=== PATIENT | male | born 1965 | race Caucasian/White ===

== ENCOUNTER 2016-10-08 14:35 | Emergency (ER) | payer OTHER ==
[2016-10-08] MEDS ORDERED: HYDROmorphone HCL 1 MG/ML DISP.SYRIN IV ONE ×2 (15:06→15:28)
[2016-10-08] MEDS ORDERED: HYDROmorphone HCL 1 MG/ML DISP.SYRIN ONE (15:10)
[2016-10-08] MEDS ORDERED: ONDANSETRON HCL/PF 2 MG/ML VIAL IV ONE (15:23)
[2016-10-08] MEDS ORDERED: ONDANSETRON HCL/PF 2 MG/ML VIAL ONE (15:23)
--- NOTE | 2016-10-08 15:23 | ERNOTE ---
Abdominal HPI - Narrative Date of Service: 10/08/16 - General Chief Complaint: Abdominal Pain Time Seen by Provider: 10/08/16 14:59 Source: patient Exam Limitations: no limitations - Immun/Allergies/Home Medications Immunizatons: IMMUNIZATION HX Immunizations Up to Date Yes History of Influenza Vaccine No Hx Pneumococcal Vaccination No Allergies/Adverse Reactions: Allergies azithromycin Adverse Reaction (Severe, Verified 10/08/16 14:46) Other Home Medications: HOME MEDICATIONS metFORMIN HCL [Glucophage Xr] 1,000 mg PO BID #180 12/27/14 [Last Taken Unknown ] Duloxetine HCl [Cymbalta] 60 mg PO DAILY 10/08/16 [Last Taken Unknown] Pantoprazole Sodium [Protonix] 40 mg PO DAILY 10/08/16 [Last Taken Unknown] glyBURIDE [Micronase] 10 mg PO DAILY 10/08/16 [Last Taken Unknown] - History of Present Illness Narrative: patient states that his umbilical hernia started to hurt today around 1pm. he states he is not able to reduce it r/t pain. Date (Duration): 10/08/16 Timing: constant, getting worse Quality: moderate Activities at Onset: none Modifying Factors - (Improves): Present: other Modifying Factors - (Worsens): Present: movement Associated Symptoms: Present: denies symptoms Prior Abdominal Problems: Present: none Review of Systems - Review of Systems Constitutional: Present: no symptoms reported EYE: Present: no symptoms reported ENT: Present: no symptoms reported Respiratory: Present: no symptoms reported Cardiology: Present: no symptoms reported Gastrointestinal/Abdominal: Present: See HPI, abdominal pain Genitourinary: Present: no symptoms reported Musculoskeletal: Present: no symptoms reported Skin: Present: no symptoms reported Neurological: Present: no symptoms reported Endocrine: Present: no symptoms reported Hematologic/Lymphatic: Present: no symptoms reported Psych: Present: no symptoms reported - Patient's Past Medical History Patient History - Medical: Arthritis, Diabetes Type 2, Depression, GERD, Other - umbilical hernia Patient History - Cardiac/Respiratory: Hypertension Patient History - Cancer: No Hx of Cancer Patient History - Surgical Procedures: Cardiac stent Patient History - Other: None - Family History Mother Family History - Medical: Diabetes Type 2 Insulin Dependent, Depression Family History - Cardiac/Respiratory: Asthma, Hypertension, Hyperlipidemia, Myocardial Infarction Father Family History - Medical: Family History - Cardiac/Respiratory: Myocardial Infarction - Social History Living Situations: home Abuse History: No History of abuse Psych History: Hx of Depression Alcohol Use: none Drug Use: none - Immunizations Immunizations Up to Date: Yes Hx Pneumococcal Vaccination: No History of Influenza Vaccine: No Physical Exam - Physical Exam Narrative: patient has a golfball size umbilical hernia that is firm and painful. skin is not red or warm. General Appearance: Present: wd/wn, alert, mild distress Eye Exam: Normal inspection: bilateral Ears, Nose, Throat: Present: normal ENT inspection Neck: Present: normal inspection, nontender Respiratory: Present: no respiratory distress, normal breath sounds, lungs clear Cardiovascular/Chest: Present: regular rate, rhythm, no murmur, normal peripheral pulses Gastrointestinal/Abdominal: Present: normal bowel sounds, nondistended, tenderness, hernia Extremity Exam: Present: normal inspection, no edema Neurological Exam: Present: alert, oriented, normal mood/affect, no motor/ sensory deficits Skin Exam: Present: normal color, warm/dry Lymphatic Exam: Present: no adenopathy ED Progress - Vital Signs Patient's Vital Signs:: I have reviewed the patient's vital signs. Vital Signs: Vital Signs 10/08/16 14:42 Temperature 36.3 C L Pulse Rate 60 Respiratory 20 Rate Blood Pressure 131/79 O2 Sat by Pulse 97 Oximetry - Progress/Reassessment Chief Complaint: Abdominal Pain Progress:: Improved Plan - Plan Plan: patient hernia reduced. patient states he feels better. Patient will follow up with Dr Beebe for s surgical repair this week. Departure - Departure Clinical Impression: Hernia, umbilical Qualifiers: Obstruction and gangrene presence: without obstruction or gangrene Qualified Code(s): K42.9 - Umbilical hernia without obstruction or gangrene Disposition: Home Follow Up Needed Condition: Stable Instructions: Umbilical Hernia, Pediatric Additional Instructions: Continue any previous home medications. Please make a follow-up appointment with Dr. Nolan regarding the need for a surgical repair of the hernia. Return to emergency room if symptoms return. Referrals: Patel Mike MD [Primary Care Provider] - Ramo Beebe MD [Associate] -
[2016-10-08 16:33] VITALS: BP 126/80
== END 2016-10-08 16:28 | disposition home or self-care (01) ==
LOC: ER 14:35
DX: K42.9 Umbilical hernia without obstruction or gangrene (principal)

== ENCOUNTER 2016-10-16 12:21 | Day surgery (SDC) | payer OTHER ==
[~2016-10-16 12:21] MED LIST: RINGERS SOLUTION,LACTATED 1,000 ML IV PRN; ceFAZolin SODIUM 2 GM in DEXTROSE 5 % IN WATER 50 ML IV PRN
[2016-10-16] MEDS ORDERED: RINGERS SOLUTION,LACTATED 1,000 ML IV ONE (12:45)
[2016-10-16] MEDS ORDERED: BUPIVACAINE HCL/EPINEPHRINE 50 ML VIAL IJ ONE ×2 (14:50)
[2016-10-16] MEDS ORDERED: HYDROcodone/ACETAMINOPHEN 1 EACH TABLET PO PRN (15:40)
--- NOTE | 2016-10-16 16:58 | OR ---
Operative Report - Dictated Report Narrative: Date: 10/16/2016 PREOP: Umbilical hernia POSTOP: same PROC: Umbilical hernia repair with medium ventralex ST mesh. SURG: Ramo Beebe MD EBL: Min. ANESTH: Local/MAC COMPS: none apparent SPECIMENS: none DESCRIPTION: Pt placed in supine position and abdomen prepped and draped in sterile fashion. Field block performed around umbilicus. Supraumbilical incision carried out. Hernia sac dissected free of subq, dermis of umbilicus and fascial rim. Properitoneal pocket formed with sponge packing and finger dissection. Medium ventralex ST patch deployed in properitoneal pocket. Prosthesis secured with running whip stitch of 0-prolene taken 360 degrees around the rim. dermis of umbilicus tacked to fascia with vicryl. Incision closed with subcuticular stitch of 4-0 vicryl and sealed with dermabond. Pt tolerated procedure well without any apparent complications and was discharged from the OR in stable condition.
[2016-10-16 17:19] VITALS: BP 130/75
== END 2016-10-16 12:22 | disposition home or self-care (01) ==
LOC: AMB 12:21
PROVIDERS: ATTEND Specialist
PROC: 0WUF0JZ Supplement Abdominal Wall with Synthetic Substitute, Open Approach (ICD-10-PCS; principal; 2016-10-16 14:00)
DX: K42.9 Umbilical hernia without obstruction or gangrene (principal); E11.65 Type 2 diabetes mellitus with hyperglycemia; J45.909 Unspecified asthma, uncomplicated; I25.10 Atherosclerotic heart disease of native coronary artery without angina pectoris; I11.0 Hypertensive heart disease with heart failure; I50.9 Heart failure, unspecified; E78.5 Hyperlipidemia, unspecified; Z68.25 Body mass index [BMI] 25.0-25.9, adult

== ENCOUNTER 2016-11-30 10:31 | Day surgery (SDC) | payer OTHER ==
[~2016-11-30 10:31] MED LIST changes: +ACETAMINOPHEN 325 MG TABLET PO PRN; +ACETYLCHOLINE CHLORIDE 20 DROP KIT IO PRN; +BUPIVACAINE HCL/PF 30 ML VIAL IJ PRN; +CYCLOPENTOLATE HCL 20 DROP BTL LEFTEYE PRN; +DEXTROSE 5%-0.5 NORMAL SALINE 1,000 ML IV PRN; +EPINEPHrine 1 MG/ML AMPUL IO PRN; +HYALURONATE SODIUM 0.4 ML DISP.SYRIN IO PRN; +HYALURONATE SODIUM 0.85 ML DISP.SYRIN IO PRN; +LIDOCAINE HCL/PF 200 MG/5 ML AMPUL TP PRN; +LIDOCAINE HCL/PF 5 ML VIAL IO PRN; +NORMAL SALINE 3 ML BOX IV PRN; +PHENYLEPHRINE HCL 50 DROP BTL LEFTEYE PRN; -RINGERS SOLUTION,LACTATED 1,000 ML IV PRN; +TETRACAINE HCL 150 DROP BTL OP PRN; +TROPICAMIDE 150 DROP BTL LEFTEYE PRN; -ceFAZolin SODIUM 2 GM in DEXTROSE 5 % IN WATER 50 ML IV PRN
== END 2016-11-30 10:32 | disposition home or self-care (01) ==
LOC: AMB 10:31
PROVIDERS: ATTEND Ophthalmology
DX: Z53.9 Procedure and treatment not carried out, unspecified reason (principal)

== ENCOUNTER 2016-12-14 06:44 | Day surgery (SDC) | payer OTHER ==
[~2016-12-14 06:44] MED LIST changes: -PHENYLEPHRINE HCL 50 DROP BTL LEFTEYE PRN; -TROPICAMIDE 150 DROP BTL LEFTEYE PRN
[2016-12-14] MEDS: PHENYLEPHRINE HCL 50 DROP BTL LEFTEYE PRN ×3 (07:10→07:37)
[2016-12-14] MEDS: TROPICAMIDE 150 DROP BTL LEFTEYE PRN ×3 (07:10→07:37)
[2016-12-14] MEDS ORDERED: RINGER'S SOLUTION,LACTATED 1,000 ML IV ONE (07:42)
[2016-12-14 09:56] VITALS: BP 130/72
== END 2016-12-14 06:45 | disposition home or self-care (01) ==
LOC: AMB 06:44
PROVIDERS: ATTEND Ophthalmology
PROC: 08RK3JZ Replacement of Left Lens with Synthetic Substitute, Percutaneous Approach (ICD-10-PCS; principal; 2016-12-14 08:00)
DX: H26.9 Unspecified cataract (principal); I11.0 Hypertensive heart disease with heart failure; I50.9 Heart failure, unspecified; E11.65 Type 2 diabetes mellitus with hyperglycemia; I25.10 Atherosclerotic heart disease of native coronary artery without angina pectoris; E78.5 Hyperlipidemia, unspecified; K58.9 Irritable bowel syndrome, unspecified; Z68.26 Body mass index [BMI] 26.0-26.9, adult

== ENCOUNTER 2018-02-01 16:39 | Observation (INO) ==
[2018-02-01] MEDS: NITROGLYCERIN 0.4 MG/TAB BTL SL ONE ×2 (16:59→17:15)
[2018-02-01] MEDS ORDERED: ASPIRIN 81 MG TAB.CHEW PO ONE (16:59)
[2018-02-01 17:17] LABS: Hematocrit 44.6 % (42.0-52.0); Hemoglobin 15.4 gm/dL (13.5-18.0); Mean Cell Volume 87.8 fl (78-100); Mean Corpuscular Hemoglobin 30.3 pg (27-31); Mean Corpuscular Hgb Conc 34.5 g/dl (32-36); Mean Platelet Volume 9.8 fl (8-11.3); Neutrophil # 3.2 K/mm3 (1.3-6.0); Neutrophil % 50.9 % (42-75.0); Platelet Count 196 K/mm3 (150-450); Red Blood Count 5.08 M/mm3 (4.7-6.0); Red Cell Distribution Width 12.2 % (11.5-14.0); White Blood Count 6.4 K/mm3 (4.0-10.5)
--- NOTE | 2018-02-01 17:26 | ERNOTE ---
Chest Pain/Cardiac HPI Date of Service: 02/01/18 Chief Complaint: Chest Pain Time Seen by Provider: 02/01/18 16:58 Source: patient, family Exam Limitations: no limitations Immunizations: IMMUNIZATION HX Immunizations Up to Date Yes History of Influenza Vaccine No Hx Pneumococcal Vaccination No Allergies/Adverse Reactions: Allergies atorvastatin [From Lipitor] Adverse Reaction (Mild, Verified 02/01/18 16:55) MUSCLE ACHES azithromycin Adverse Reaction (Mild, Verified 02/01/18 16:55) UPSET STOMACH Home Medications: HOME MEDICATIONS Acetaminophen [Tylenol] 500 mg PO Q4H PRN 10/15/16 [Last Taken Unknown] Glimepiride [Amaryl] 4 mg PO DAILY@0700 10/15/16 [Last Taken Unknown] Pantoprazole Sodium [Protonix] 20 mg PO DAILY 10/15/16 [Last Taken Unknown] metFORMIN HCL [Glucophage] 1,000 mg PO BIDWM 10/15/16 [Last Taken Unknown] aspirin 81 mg tablet,delayed release 325 mg PO DAILY 12/13/17 [Last Taken Unknown] duloxetine 60 mg capsule,delayed release 60 mg PO DAILY 12/13/17 [Last Taken Unknown] empagliflozin 25 mg tablet 25 mg PO DAILY 12/13/17 [Last Taken Unknown] atorvastatin 40 mg tablet 40 mg PO DAILY 12/16/17 [Last Taken Unknown] Narrative: Patient presents to the ER after having a syncopal episode at home falling down onto the floor against a computer. Son heard him fall and ran out. States he was out for approx 5 seconds then was slow to respond. Then started complaining of chest pain. Describes as an aching in the mid to lower sternum. States he did not hit his chest on anything. Denies any other pain. Date (Duration): 02/01/18 Time (Timing): 16:00 Timing: constant Severity/Quality: moderate, dull, pressure Location: substernal Chest Pain Radiation: no radiation Activities at Onset: other - syncope Modifying Factors - Improves: Present: nothing Modifying Factors - Worsens: Present: nothing Nitro Today/Relief: 0.4 mg x 3, provided by ED Aspirin Treatment Today: 325 mg x 1, provided at home Associated Symptoms: Present: syncope, weakness. Absent: headache, dizziness, shortness of breath, nausea Prior Chest Pain/Cardiac Workup: Reports: prior chest pain, cardiac cath, other - 3 yrs ago Review of Systems - Review of Systems Constitutional: Present: no symptoms reported ENT: Present: no symptoms reported Respiratory: Present: no symptoms reported Cardiology: Present: See HPI, chest pain, syncope Gastrointestinal/Abdominal: Present: no symptoms reported Genitourinary: Present: no symptoms reported Musculoskeletal: Present: no symptoms reported Skin: Present: no symptoms reported Neurological: Present: no symptoms reported Endocrine: Present: no symptoms reported Hematologic/Lymphatic: Present: no symptoms reported Psych: Present: no symptoms reported Medical History (Last Reviewed 02/01/18 @ 16:56 by Claudy Long RN) Diabetes mellitus (Chronic) Onset Date: Unknown IBS (irritable bowel syndrome) (Chronic) Onset Date: Unknown Hypertension (Chronic) Onset Date: Unknown Hyperlipidemia (Chronic) Onset Date: Unknown CHF (congestive heart failure) (Chronic) Onset Date: Unknown Cataract (Chronic) Onset Date: ~09/30/16 CAD (coronary artery disease) (Chronic) Onset Date: Unknown Asthma (Chronic) Onset Date: Unknown Foot fracture Onset Date: ~04/2015 Surgical History: Surgical History (Last Reviewed 02/01/18 @ 16:56 by Claudy Long RN) H/O coronary angiogram Onset Date: ~01/04/15 H/O umbilical hernia repair Onset Date: ~10/16/16 History of placement of stent in LAD coronary artery Onset Date: ~01/04/15 Family History: Family History (Last Reviewed 02/01/18 @ 16:56 by Claudy Long RN) Brother Alive and well Father No problems noted. Mother Diabetes CVA (cerebral vascular accident) Coronary artery disease Sister Alive and well Social History: Preferred Language Spanish Do you have any gnosticist or Yes: caodaism cultural preference? Smoking Status Former smoker Abuse History No History of abuse Psych History Hx of Depression,Currently on Meds Alcohol Use rarely Drug Use none Physical Exam - Physical Exam General Appearance: Present: wd/wn, alert, mild distress Head Exam: Present: normal inspection, no evidence of injury Eye Exam: Normal inspection: bilateral, PERRL: bilateral, EOMI: bilateral Ears, Nose, Throat: Present: normal pharynx Neck: Present: normal inspection, nontender. Absent: carotid bruit Respiratory: Present: no respiratory distress, normal breath sounds, no accessory muscle use, lungs clear, other - Mild chest sternal tenderness. No redness or bruising Cardiovascular/Chest: Present: regular rate, rhythm, no murmur, normal peripheral pulses Peripheral Pulses: N=norm/S=strong/W=weak/B=bound/A=absent: Radial (R): Normal, Radial (L): Normal, Dorsalis-pedis (R): Normal, Dorsalis-pedis (L): Normal Gastrointestinal/Abdominal: Present: normal bowel sounds, nontender, nondistended, soft Back Exam: Present: normal range of motion, no CVA tenderness, no vertebral tenderness Extremity Exam: Present: normal inspection, normal range of motion, no edema Neurological Exam: Present: alert, oriented, normal mood/affect, no motor/ sensory deficits Skin Exam: Present: normal color, warm/dry ED Progress - Results and Orders Patient's Lab Results:: I have reviewed the patient's lab results. - Vital Signs Patient's Vital Signs:: I have reviewed the patient's vital signs. Vital Signs: Vital Signs 02/01/18 16:46 02/01/18 16:54 Temperature 36.6 C Pulse Rate 73 85 Respiratory Rate 11 L 11 L Blood Pressure 139/85 139/85 O2 Sat by Pulse Oximetry 97 96 - EKG EKG: NSR - X-Ray X-Ray #1 X-Ray: chest - No acute pulmonary findings Interpretation: Interp. by me - CT/Ultrasound CT/Ultrasound Narrative: CT head. No acute findings. - Progress/Reassessment Chief Complaint: Chest Pain Progress:: Pain free at discharge - Transfer of Care Additional Notes: Spoke with Dr. Tijerina who will accept patient observation for serial troponin and telemetry. Departure Clinical Impression: Syncope and collapse, Chest pain CAD (coronary artery disease) Qualifiers: Coronary Disease-Associated Artery/Lesion type: unspecified vessel or lesion type [place] vs. transplanted heart: [place] heart Associated angina: with angina and documented spasm Qualified Code(s): I25.111 - Atherosclerotic heart disease of [place] coronary artery with angina pectoris with documented spasm - Departure Disposition: Still a patient Condition: Stable Referrals: Patel Mike MD [Primary Care Provider] -
[2018-02-01 17:46] LABS: ALT 21 U/L (19-67); AST 10 U/L (0-48); Albumin * 3.9 gm/dl (3.4-5.0); Alkaline Phosphatase * 129 U/L (50-170); Anion Gap 11.9 mmol/L (6.8-13.8); BUN/Creatinine Ratio 14.4 (9.0-21.6); Bilirubin, Total 0.3 mg/dL (0.0-1.1); Blood Urea Nitrogen 15 mg/dL (6-23); Ca. Corrected For Albumin 8.6 mg/dL (8.4-10.2); Calcium * 8.8 mg/dL (7.9-10.9); Carbon Dioxide 26.7 mmol/L (24-32.6); Chloride 102 mmol/L (97-106); Glucose * 253 mg/dL (70-110); Magnesium 1.8 mg/dL (1.2-2.8); Potassium 3.6 mmol/L (3.4-4.6); Sodium 137 mmol/L (132-142)
[2018-02-01 17:52] LABS: Troponin I Less than 0.017 ng/mL (0.00-0.10)
[2018-02-01 18:28] LABS: Urine Bilirubin Negative (NEGATIVE); Urine Blood Negative /ul (NEGATIVE); Urine Ketone Negative (NEGATIVE); Urine Nitrite Negative (NEGATIVE); Urine Protein Negative (NEGATIVE); Urine Urobilinogen Normal (NORMAL)
[2018-02-01 18:38] LABS: Urine Appearance Clear (CLEAR); Urine Bacteria TRACE; Urine Color Yellow; Urine RBC None Seen /hpf (0-5); Urine WBC None Seen /hpf (0-5)
[2018-02-01] MEDS ORDERED: ROSUVASTATIN CALCIUM 10 MG TABLET PO ONE (21:00)
[2018-02-01] MEDS ORDERED: GLIMEPIRIDE 4 MG TABLET PO ONE (21:00)
[2018-02-01] MEDS ORDERED: DULoxetine HCL 30 MG CAPSULE.SA PO ONE (21:00)
[2018-02-01] MEDS ORDERED: ASPIRIN 81 MG TABLET.DR PO ONE (21:00)
[2018-02-01] MEDS ORDERED: EMPAGLIFLOZIN 25 MG TABLET PO ONE (21:00)
[2018-02-01] MEDS ORDERED: metFORMIN HCL 500 MG TABLET ONE (22:04)
[2018-02-01] MEDS ORDERED: ASPIRIN 81 MG TABLET.DR ONE (22:06)
[2018-02-01] MEDS ORDERED: PANTOPRAZOLE SODIUM 20 MG TABLET.DR ONE (22:06)
[2018-02-01] MEDS ORDERED: GLIMEPIRIDE 2 MG TABLET ONE (22:07)
--- NOTE | 2018-02-02 08:14 | HP ---
Chief Complaint - Chief Complaint Date of Service: 02/02/18 Time of Service: 08:07 Chief Complaint: Syncope/Chest pain History of Present Illness: Bobby Bella, is a 52-year-old white male, patient of Dr. Mike, with past medical history of coronary artery disease, diabetes mellitus type 2, hypertension, hyperlipidemia, who was admitted on 02/01/2018 because of a syncopal attack and chest pain. On the day of admission, the patient stood up from his kitchen to go to his living room which is about 7-8 feet away when he suddenly passed out and found himself on the floor. When he woke up he had some chest pain. He does not remember hitting his chest anything although his son's computer was on his right axillary area. He does say that he gets off-and -on lightheadedness when he stands up from his commode. He is showing Harman Marin for his diabetes. He also remembers doing some yard work a few hours before this happened. He did not have any palpitations, chest pain before this happened, shortness of breath, diaphoresis, tremors. His son said he he did not have any twitching or rolling of eyeballs before this happened. He denied any soilage of his undergarments. Medical History (Last Reviewed 02/01/18 @ 16:56 by Claudy Long RN) Diabetes mellitus (Chronic) Onset Date: Unknown IBS (irritable bowel syndrome) (Chronic) Onset Date: Unknown Hypertension (Chronic) Onset Date: Unknown Hyperlipidemia (Chronic) Onset Date: Unknown CHF (congestive heart failure) (Chronic) Onset Date: Unknown Cataract (Chronic) Onset Date: ~09/30/16 CAD (coronary artery disease) (Chronic) Onset Date: Unknown Asthma (Chronic) Onset Date: Unknown Foot fracture Onset Date: ~04/2015 Surgical History: Surgical History (Last Reviewed 02/01/18 @ 16:56 by Claudy Long RN) H/O coronary angiogram Onset Date: ~01/04/15 H/O umbilical hernia repair Onset Date: ~10/16/16 History of placement of stent in LAD coronary artery Onset Date: ~01/04/15 Family History: Family History (Last Reviewed 02/01/18 @ 19:45 by Per Millan RN) Brother Alive and well Father No problems noted. 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 Smoking Status Never smoker Have you smoked in the past 12 No months Do you dip or chew tobacco No Abuse History No History of abuse Psych History Hx of Depression,Currently on Meds Alcohol Use rarely Drug Use none Review Of Systems (GEN) - Review of Systems Generalized/Overall Review: Absent: Weakness, Chills, Fever Respiratory: Absent: Cough, Shortness of Breath Cardiac: Present: Chest Pain - resolved. Absent: Edema, Palpitations Abdominal: Absent: Nausea, Vomiting Genitourinary: Absent: Urgency, Frequency Musculoskeletal: Absent: Joint Pain, Back Pain Neurological: Absent: Headache, Seizure, Tremors Immunizations: IMMUNIZATION HX Immunizations Up to Date Yes History of Influenza Vaccine No Hx Pneumococcal Vaccination No Allergies/Adverse Reactions: Allergies Allergy/AdvReac Type Severity Reaction Status Date / Time atorvastatin [From Lipitor] AdvReac Mild MUSCLE Verified 02/01/18 16:55 ACHES azithromycin AdvReac Mild UPSET Verified 02/01/18 16:55 STOMACH Home Medications: HOME MEDICATIONS Acetaminophen [Tylenol] 500 mg PO Q4H PRN 10/15/16 [Last Taken Unknown] Glimepiride [Amaryl] 4 mg PO DAILY@0700 10/15/16 [Last Taken 01/31/18] Pantoprazole Sodium [Protonix] 20 mg PO DAILY 10/15/16 [Last Taken 01/31/18] metFORMIN HCL [Glucophage] 1,000 mg PO BIDWM 10/15/16 [Last Taken 02/01/18] aspirin 81 mg tablet,delayed release 325 mg PO DAILY 12/13/17 [Last Taken ] duloxetine 60 mg capsule,delayed release 60 mg PO DAILY 12/13/17 [Last Taken 03/10] empagliflozin 25 mg tablet 25 mg PO DAILY 12/13/17 [Last Taken 01/31/18] atorvastatin 40 mg tablet 40 mg PO DAILY 12/16/17 [Last Taken 01/31/18] Exam - Exam Vital Signs: Vital Signs - Last Taken Temp 36.4 C 02/02/18 06:51 Pulse 74 02/02/18 06:51 Resp 16 02/02/18 06:51 BP 145/91 H 02/02/18 06:51 Pulse Ox 99 02/02/18 06:51 Constitutional: Present: Alert, Oriented x3, Cooperative ENT Exam: Present: hearing grossly normal Eye Exam: bilateral eye: normal inspection, PERRL, EOMI Neck: Present: supple Respiratory: Present: normal breath sounds, No rales, No wheezing Cardiovascular/Chest: Present: regular rate, rhythm, no JVD, no murmur Abdomen: Present: Normal bowel sounds, soft, nontender, nondistended Extremity: Present: no pedal edema, no calf tenderness Diagnostic Studies: Abnormal Lab Results 02/01/18 02/01/18 02/01/18 Range/Units 17:00 17:00 18:23 Eosinophils % 3.1 H (0.0-3.0) % Random Glucose 253 H (70-110) mg/dL Urine Glucose (UA) >=1000 H (NEGATIVE) mg/dL Laboratory Results WBC 6.4 K/mm3 (4.0-10.5) 02/01/18 17:00 RBC 5.08 M/mm3 (4.7-6.0) 02/01/18 17:00 Hgb 15.4 gm/dL (13.5-18.0) 02/01/18 17:00 Hct 44.6 % (42.0-52.0) 02/01/18 17:00 MCV 87.8 fl (78-100) 02/01/18 17:00 MCH 30.3 pg (27-31) 02/01/18 17:00 MCHC 34.5 g/dl (32-36) 02/01/18 17:00 RDW 12.2 % (11.5-14.0) 02/01/18 17:00 Plt Count 196 K/mm3 (150-450) 02/01/18 17:00 MPV 9.8 fl (8-11.3) 02/01/18 17:00 Immature Gran % (Auto) 0.20 % (0.001-0.429) 02/01/18 17:00 Immature Gran # (Auto) 0.01 K/mm3 (0.000-0.0310) 02/01/18 17:00 Neutrophils % 50.9 % (42-75.0) 02/01/18 17:00 Lymphocytes % 38.1 % (20-51) 02/01/18 17:00 Monocytes % 6.9 % (0.0-9) 02/01/18 17:00 Eosinophils % 3.1 % (0.0-3.0) H 02/01/18 17:00 Basophils % 0.8 % (0.0-1.0) 02/01/18 17:00 Nucleated RBC % 0.0 k/mm3 (0-1) 02/01/18 17:00 Neutrophils # 3.2 K/mm3 (1.3-6.0) 02/01/18 17:00 Lymphocytes # 2.43 k/mm3 (1.5-3.5) 02/01/18 17:00 Monocytes # 0.4 k/mm3 (0.0-1.0) 02/01/18 17:00 Eosinophils # 0.2 k/mm3 (0.0-0.7) 02/01/18 17:00 Absolute Basophils 0.1 k/mm3 (0.0-0.1) 02/01/18 17:00 Sodium 137 mmol/L (132-142) 02/01/18 17:00 Plasma Sodium 139 mmol/L (130-142) 02/01/18 17:00 Potassium 3.6 mmol/L (3.4-4.6) 02/01/18 17:00 Chloride 102 mmol/L (97-106) 02/01/18 17:00 Carbon Dioxide 26.7 mmol/L (24-32.6) 02/01/18 17:00 Anion Gap 11.9 mmol/L (6.8-13.8) 02/01/18 17:00 BUN 15 mg/dL (6-23) 02/01/18 17:00 Creatinine 1.04 mg/dL (0.4-1.4) 02/01/18 17:00 Est GFR (Non-Af Amer) 79 mL/min (60-130) 02/01/18 17:00 BUN/Creatinine Ratio 14.4 (9.0-21.6) 02/01/18 17:00 Random Glucose 253 mg/dL (70-110) H 02/01/18 17:00 Calcium 8.8 mg/dL (7.9-10.9) 02/01/18 17:00 Calcium Adj for Albumin 8.6 mg/dL (8.4-10.2) 02/01/18 17:00 Phosphorus 3.0 mg/dL (2.2-4.2) 02/01/18 17:00 Magnesium 1.8 mg/dL (1.2-2.8) 02/01/18 17:00 Total Bilirubin 0.3 mg/dL (0.0-1.1) 02/01/18 17:00 AST 10 U/L (0-48) 02/01/18 17:00 ALT 21 U/L (19-67) 02/01/18 17:00 Alkaline Phosphatase 129 U/L (50-170) 02/01/18 17:00 Troponin I Less than 0.017 ng/mL (0.00-0.10) 02/01/18 23:37 Total Protein 7.0 gm/dL (6.2-8.2) 02/01/18 17:00 Albumin 3.9 gm/dl (3.4-5.0) 02/01/18 17:00 Urine Color Yellow 02/01/18 18:23 Urine Appearance Clear (CLEAR) 02/01/18 18:23 Urine pH 6.0 pH (5.0-7.0) 02/01/18 18:23 Ur Specific [place] 1.020 SP.GR. (1.005-1.030) 02/01/18 18: Urine Protein Negative mg/dL (NEGATIVE) 02/01/18 18: Urine Glucose (UA) >=1000 mg/dL (NEGATIVE) H 02/01/18 18: Urine Ketones Negative mg/dL (NEGATIVE) 02/01/18 18: Urine Blood Negative /ul (NEGATIVE) 02/01/18 18:23 Urine Nitrate Negative (NEGATIVE) 02/01/18 18: Urine Bilirubin Negative mg/dl (NEGATIVE) 02/01/18 18: Urine Urobilinogen Normal EU/dl (NORMAL) 02/01/18 18: Ur Leukocyte Esterase Negative /ul (NEGATIVE) 02/01/18 18:23 Urine RBC None seen /hpf (0-5) 02/01/18 18:23 Urine WBC None seen /hpf (0-5) 02/01/18 18:23 Ur Epithelial Cells Trace /hpf (0-5) 02/01/18 18:23 Urine Bacteria Trace (NONE) 02/01/18 18:23 Urine Culture Comments No culture indicated 02/01/18 18:23 Assessment/Plan - Assessment/Plan (1) Chest pain Assessment: r/o ACS. will do serial EKG and troponin determination. Problem: Acute (2) Syncope and collapse Assessment: likely orthostatic- meds/dehydration induced. will do orhtostatic vital signs. Problem: Acute (3) JANE (generalized anxiety disorder) Problem: Chronic (4) Diabetes mellitus Problem: Chronic Qualifiers: Diabetes mellitus type: type 2 Diabetes mellitus termite control servicer insulin use: without termite control servicer use Diabetes mellitus complication status: without complication Qualified Code(s): E11.9 - Type 2 diabetes mellitus without complications (5) Hypertension Problem: Chronic Qualifiers: Hypertension type: essential hypertension Qualified Code(s): I10 - Essential (primary) hypertension (6) Hyperlipidemia Problem: Chronic
--- NOTE | 2018-02-02 08:35 | DS ---
(1) Chest pain Diagnosis(s): AMI ruled out. likely muscular. Problem: Resolved (2) Syncope and collapse Diagnosis(s): likely orhtostatic - Jardiance and mild dehydration Problem: Acute (3) JANE (generalized anxiety disorder) Problem: Chronic (4) Diabetes mellitus Problem: Chronic Qualifiers: Diabetes mellitus type: type 2 Diabetes mellitus snf insulin use: without snf use Diabetes mellitus complication status: without complication Qualified Code(s): E11.9 - Type 2 diabetes mellitus without complications (5) Hypertension Problem: Chronic Qualifiers: Hypertension type: essential hypertension Qualified Code(s): I10 - Essential (primary) hypertension (6) Hyperlipidemia Problem: Chronic Description of Stay: Bobby Bella, is a 52-year-old white male, patient of Dr. Mike, with past medical history of coronary artery disease, diabetes mellitus type 2, hypertension, hyperlipidemia, who was admitted on 02/01/2018 because of a syncopal attack and chest pain. On the day of admission, the patient stood up from his kitchen to go to his living room which is about 7-8 feet away when he suddenly passed out and found himself on the floor. When he woke up he had some chest pain. He does not remember hitting his chest anything although his son's computer was on his right axillary area. He does say that he gets off-and -on lightheadedness when he stands up from his commode. He is showing Harman Marin for his diabetes. He also remembers doing some yard work a few hours before this happened. He did not have any palpitations, chest pain before this happened, shortness of breath, diaphoresis, tremors. His son said he he did not have any twitching or rolling of eyeballs before this happened. He denied any soilage of his undergarments. His syncopal attack is likely due to orhtstatic hypotension and his CP likely muscular strain. He was ruled out for AMI. He was told to increase his oral fluids and change positions in stages. Procedures Performed: none Results and Findings: Lab Pending Results 02/01/18 17:00: WBC 6.4, RBC 5.08, Hgb 15.4, Hct 44.6, MCV 87.8, MCH 30.3, MCHC 34.5, RDW 12.2, Plt Count 196, MPV 9.8, Immature Gran % (Auto) 0.20, Immature Gran # (Auto) 0.01, Neutrophils % 50.9, Lymphocytes % 38.1, Monocytes % 6.9, Eosinophils % 3.1 H, Basophils % 0.8, Nucleated RBC % 0.0, Neutrophils # 3.2, Lymphocytes # 2.43, Monocytes # 0.4, Eosinophils # 0.2, Absolute Basophils 0.1 02/01/18 17:00: Sodium 137, Plasma Sodium 139, Potassium 3.6, Chloride 102, Carbon Dioxide 26.7, Anion Gap 11.9, BUN 15, Creatinine 1.04, Est GFR (Non-Af Amer) 79, BUN/Creatinine Ratio 14.4, Random Glucose 253 H, Calcium 8.8, Calcium Adj for Albumin 8.6, Phosphorus 3.0, Magnesium 1.8, Total Bilirubin 0.3, AST 10 , ALT 21, Alkaline Phosphatase 129, Troponin I Less than 0.017, Total Protein 7.0, Albumin 3.9 02/01/18 18:23: Urine Color Yellow, Urine Appearance Clear, Urine pH 6.0, Ur Specific [place] 1.020, Urine Protein Negative, Urine Glucose (UA) >=1000 H, Urine Ketones Negative, Urine Blood Negative, Urine Nitrate Negative, Urine Bilirubin Negative, Urine Urobilinogen Normal, Ur Leukocyte Esterase Negative, Urine RBC None seen, Urine WBC None seen, Ur Epithelial Cells Trace, Urine Bacteria Trace, Urine Culture Comments No culture indicated 02/01/18 23:37: Troponin I Less than 0.017 Discharge Location: Home Disposition: Home self-care Condition: Stable Discharge Activity: Activity as tolerated Referrals: Patel Mike MD [Primary Care Provider] - Additional Patient Instructions (free text): Follow up with PCP in 1 week. Complete Home Medications List: Complete Home Medication List: Acetaminophen [Tylenol] 500 mg PO Q4H PRN 10/15/16 Glimepiride [Amaryl] 4 mg PO DAILY@0700 10/15/16 Pantoprazole Sodium [Protonix] 20 mg PO DAILY 10/15/16 metFORMIN HCL [Glucophage] 1,000 mg PO BIDWM 10/15/16 aspirin 81 mg tablet,delayed release 325 mg PO DAILY 12/13/17 duloxetine 60 mg capsule,delayed release 60 mg PO DAILY 12/13/17 empagliflozin 25 mg tablet 25 mg PO DAILY 12/13/17 atorvastatin 40 mg tablet 40 mg PO DAILY 12/16/17
[2018-02-02 10:00] VITALS: BP 120/71
[2018-02-02] MEDS ORDERED: PANTOPRAZOLE SODIUM 20 MG TABLET.DR PO ONE (21:00)
== END 2018-02-02 11:00 | disposition home or self-care (01) ==
LOC: ER 16:39 → MS 16:39
PROVIDERS: ADMIT Internal Medicine; ATTEND Internal Medicine
CPT/HCPCS: 36415; 70450; 71020; 71046; 80053; 81001; 83735; 84100; 84484; 85025; 93005; 99284; G0378